=== PATIENT | female | born 1970 | race Caucasian/White ===

== ENCOUNTER 2023-02-14 12:00 | Day surgery (SDC) | payer BC, OTHER ==
[~2023-02-14] VITALS: Ht 172.7 cm; Wt 92.5 kg
[~2023-02-14 12:00] MED LIST: ALBU8.5H INH; ANAS1TAB2 PO; DULO1CAP6 PO; EXEM25TA PO; GABA600T4 PO; GLIM1TAB4 PO; GLIP10TA18 PO; GUMMCHW PO; HEPARIN SOD (PORCINE) 5000UNITS/ML 1ML VIAL/SYRINGE SQ ONE; LANTINJ4 SQ; LEVOTAB10 PO; LR 1,000 ML IV SCH; MAGN400T2 PO; MELO15TA28 PO; MONT10TA97 PO; NORT10CA2 PO; OMEP40CA5 PO; SUMA50TA2 PO; TRUL0.5I SQ; URSO300C3 PO; VENTAER INH; ceFAZolin SOD 2 GM in IV 1 EA IV ONE
[2023-02-14] MEDS ORDERED: LIDOCAINE 2% 100MG/5ML SDV (FOR ANES.) As Ordered ONE (12:26)
[2023-02-14] MEDS ORDERED: ONDANSETRON 4MG 2ML VIAL As Ordered ONE (12:26)
[2023-02-14] MEDS ORDERED: ROCURONIUM BROMIDE 50MG/5ML VIAL As Ordered ONE ×2 (12:26→15:21)
[2023-02-14] MEDS ORDERED: propofoL 200 MG/20 ML VIAL As Ordered ONE (12:26)
[2023-02-14] MEDS ORDERED: fentaNYL 250 MCG/5 ML INJECTION As Ordered ONE (12:26)
[2023-02-14] MEDS ORDERED: MIDAZOLAM INJ 2MG/2ML VIAL As Ordered ONE (12:27)
[2023-02-14] MEDS ORDERED: SEVOFLURANE INHAL SOLN 250 ML BTL As Ordered ONE (14:03)
[2023-02-14] MEDS ORDERED: GENTAMICIN SULF 80MG/2ML VIAL As Ordered ONE (14:12)
[2023-02-14] MEDS ORDERED: LIDOCAINE 1% MDV 20ML VIAL As Ordered ONE (14:12)
[2023-02-14] MEDS ORDERED: EPINEPHrine INJ 1 MG/ML 1ML AMP As Ordered ONE (14:12)
[2023-02-14] MEDS ORDERED: METOCLOPRAMIDE INJ 10MG/2ML VIAL As Ordered ONE (15:03)
[2023-02-14] MEDS ORDERED: ACETAMINOPHEN 1000MG 100ML IV BAG As Ordered ONE (15:25)
[2023-02-14] MEDS ORDERED: SUGAMMADEX SODIUM 500 MG/5 ML VIAL (BRIDION) As Ordered ONE (15:25)
[2023-02-14] MEDS ORDERED: HYDROmorphone HCL 2MG/ML 1ML VIAL As Ordered ONE (15:44)
[2023-02-14] MEDS ORDERED: ONDANSETRON 4MG 2ML VIAL IV PRN (17:10)
[2023-02-14] MEDS ORDERED: fentaNYL 100 MCG/2 ML INJECTION IV PRN (17:10)
[2023-02-14] MEDS ORDERED: HYDROMORPHONE HCL 0.5 MG/ 0.5 ML SYRINGE IV PRN (17:10)
[2023-02-14] MEDS ORDERED: LR 1,000 ML IV SCH (17:10)
[2023-02-14] MEDS ORDERED: oxyCODONE 5MG TAB PO PRN (17:10)
[2023-02-14] MEDS ORDERED: OXYC1TAB23 PO (17:18)
[2023-02-14 18:30] VITALS: BP 125/62; TEMP 98.3; O2SAT 97
== END 2023-02-14 18:58 | disposition home or self-care (01) ==
LOC: M SDC 12:00
PROVIDERS: ATTEND Plastic Surgery Surgery of the Hand
DX: L57.8 Other skin changes due to chronic exposure to nonionizing radiation (principal); Z85.3 Personal history of malignant neoplasm of breast; Z90.13 Acquired absence of bilateral breasts and nipples; Z42.1 Encounter for breast reconstruction following mastectomy; L98.7 Excessive and redundant skin and subcutaneous tissue; E11.9 Type 2 diabetes mellitus without complications; K21.9 Gastro-esophageal reflux disease without esophagitis; G43.909 Migraine, unspecified, not intractable, without status migrainosus; G47.33 Obstructive sleep apnea (adult) (pediatric); F32.A Depression, unspecified; K76.0 Fatty (change of) liver, not elsewhere classified; Z92.3 Personal history of irradiation; Z88.8 Allergy status to other drugs, medicaments and biological substances; Z79.899 Other long term (current) drug therapy; Z79.4 Long term (current) use of insulin; Z79.85 Long-term (current) use of injectable non-insulin antidiabetic drugs
CPT/HCPCS: 19380; 88300; 88302; C9290; J0131; J0171; J0665; J0690; J1100; J1170; J1580; J2250; J2405; J2765; J3010